=== PATIENT | female | born 1985 | race Caucasian/White ===

== ENCOUNTER 2017-04-21 07:28 | Inpatient (IN) | payer OTHER ==
[~2017-04-21] VITALS: Ht 167.6 cm; Wt 83.9 kg
[~2017-04-21 07:28] MED LIST: PREN1TAB47 PO; WEL100 PO
[2017-04-21] MEDS ORDERED: fentaNYL-PF 50 mCg/mL 2 mL Inj IVPUSH PRN (08:15)
[2017-04-21] MEDS ORDERED: Carboprost 250 mCg/mL Inj IM PRN ×2 (08:15→18:30)
[2017-04-21] MEDS ORDERED: Hemorrhage Kit, Post Partum XX ONE ×2 (08:15→18:30)
[2017-04-21] MEDS ORDERED: Methylergonovine 0.2 mg/mL Inj IM PRN ×2 (08:15→18:30)
[2017-04-21] MEDS ORDERED: Oxytocin 10 Unit/mL Inj IM PRN ×2 (08:15→18:30)
[2017-04-21] MEDS ORDERED: Oxytocin 30 Units/500 mL LR 30 UNITS in IV Premix 1 EACH IV PRN (08:15)
[2017-04-21] MEDS ORDERED: Sodium Chloride LOK Flush 10 mL Syringe IVFLUSH PRN (08:15)
[2017-04-21 08:42] LABS: Mean Corpuscular Hemoglobin 31.3 pg (27.0-35.0); Mean Corpuscular Volume 89.8 fL (81-100)
[2017-04-21] MEDS: Lactated Ringer's 1,000 ML IV PRN ×2 (08:48→11:03)
[2017-04-21] MEDS ORDERED: Lactated Ringer's 500 ML IV ONE (11:02)
[2017-04-21] MEDS ORDERED: EPHEDrine Sulfate 50 mg/mL Inj IVPUSH PRN (11:05)
[2017-04-21] MEDS ORDERED: fentaNYL 2 mCg/mL-Bupiv 0.125% 100 ML EPIDURAL SCH (11:05)
[2017-04-21] MEDS ORDERED: Atropine 1 mg/10 mL (Code) Syringe IVPUSH PRN (11:05)
[2017-04-21] MEDS ORDERED: Ondansetron 2 mg/mL 2 mL Inj IVPUSH PRN (11:05)
--- NOTE | 2017-04-21 14:37 | PCM.HPANE ---
Patient Data Date of Service: Apr 21, 2017 Surgeon Admitting Provider:Akshat Ledesma MD Attending Provider:Akshat Ledesma MD Primary Care Physician:Akshat Ledesma MD Other Provider: Reason for Visit Early Labor Check Ht/WT & BMI Body Mass Index Allergies Coded Allergies: No Known Allergies (Unverified Allergy, 11/03/12) Past Anesthesia History Anesthesia History: Denies:: Abnormal Airway Diabetes History Hx Diabetes?: No MRSA MRSA: No Medications Hypertension Medication: No Home Meds Incl Beta Otto: No Reported Medications Bupropion-Expunged Drug, Do Not Renew! 100 Mg Tablet1 Tab PO BID #60 TAB TAKE WITH FOOD 11/02/12 Vit/Fe Fumarate/Fa-Expunged Drug, Do (-Expunged Drug, Do Not Renew!)1 Tab Tablet1 Tab PO DAILY #1 11/02/12 History History of ENT Problems?: No HEENT History: Denies:: Abnormal Airway Denture Type: None Teeth Condition: Within Normal Limits Hx of Heart Problems?: No Cardiovascular History: Denies:: Abdominal Aortic Aneurism Hx of Respiratory Problem?: No Respiratory History: Denies:: Asthma Hx Neurologic Problems?: Yes Neurological History: Positive for:: Peripheral Neuropathy Other History/Comments numbness to right later leg. No weakness. Radiculopathy to b/l legs. Overall back pain. Hx of GI Problems?: Yes Gastrointestinal History: Positive for:: Gastroesphageal Reflux Hx of Problems?: No HX of Peritoneal Dialysis: No Female Hx: Positive for:: Currently Hx Musculoskeletal Problems?: Yes Musculoskeletal History: Positive for:: Back Injury Degenerative Joint Fibromyalgia Hx of Psycho/Social Problems?: No Hx Surgeries?: No Hx Any Other Health Problems?: No Hx Diabetes: No Hx Alcohol Use: YesHx Substance Use: No Stop/Bang Treated for Sleep Apnea?: No Do You Have a CPAP Machine?: No ANDRÉS Risk Assessment: Low Risk, <3 Yes Risk Assessment Category Category 1A: Patient has history of documented sleep apnea, and HAS NOT received any narcotic, sedative or anesthesia administration during this stay. Category 1B: Patient has history of documented sleep apnea, and HAS received any narcotic , sedative or anesthesia administration during this stay Category 2: Patient has SUSPECTED Obstructive Sleep Apnea, and HAS received any narcotic , sedative or anesthesia administration during this stay. Category 3: Patient has SUSPECTED Obstructive Sleep Apnea and HAS NOT received narcotic, sedative or anesthesia administration during this stay. Category 4: Outpatient in Procedural Areas with known sleep apnea or who screen positive for High Risk via the STOP/BANG questionnaire. Exam Exam General Appearance: Alert, Oriented X3 HEENT/AIRWAY: MP 1 Lungs: Clear to Auscultation Heart: Exam Unremarkable Meds/Labs/Diagnostics Labs Test 04/21/17 08:15 White Blood Count 17.4th/mm3 (3.8-10.1) Red Blood Count 4.41mil/mm3 (3.90-5.20) Hemoglobin 13.8g/dL (12.0-15.6) Hematocrit 39.6% (35.0-46.0) Mean Corpuscular Volume 89.8fL (81-100) Mean Corpuscular Hemoglobin 31.3pg (27.0-35.0) Mean Corpuscular Hemoglobin Concent 34.8% (32.0-37.0) Red Cell Distribution Width 13.4% (12.3-15.4) Platelet Count 171bil/L (150-400) Plan Impression Patient chart reviewed, patient interviewed and anesthestic plan with risks, benefits, and alternatives discussed, and informed consent obtained. NPO per Anesth. Guidelines: Yes ASA Physical Status: ASA2 Mod Systemic Disease Anesthetic Plan: Regional Block Bene/Risks/Altern/Consents: Yes HP Complete Prior to Induction: Yes Other Beyond normal consent, spent extra time discussing her back pain, risk of nerve damage with placement. Option to obtain imiging prior to epidural to better understand nature of back pain. She understands and wishes to proceed. Marky Ovalle MD Apr 21, 2017 14:37
[2017-04-21] MEDS: Lactated Ringer's 1,000 ML IV SCH ×2 (16:24→19:02)
[2017-04-21] MEDS ORDERED: Sodium Chloride LOK Flush 10 mL Syringe IVFLUSH SCH (16:30)
--- NOTE | 2017-04-21 17:26 | PCM.PNOBIP ---
Subjective Date of Service Apr 21, 2017 Delivery plan: Spontaneous Vaginal Delivery Visit History In to check on patient progress. Subjective Currently without complaints. Pain Management: Epidural, Good Pain Control Labs Laboratory Tests 04/21/17 08:15: White Blood Count 17.4, Red Blood Count 4.41, Hemoglobin 13.8, Hematocrit 39.6, Mean Corpuscular Volume 89.8, Mean Corpuscular Hemoglobin 31.3, Mean Corpuscular Hemoglobin Concent 34.8, Red Cell Distribution Width 13.4, Platelet Count 171 Exam Vital Signs Vital Signs Contraction frequency in minutes: MVUs: Vital Signs: VS reviewed, stable Heart Tracings Heart Tones Baseline 145 bpm Heart Rate Variability: Moderate Heart Rate Accelleration: Present Heart Rate Deceleration: Absent Tocometry/IUPC Contraction frequency in minutes: 2-3 Sterile Vaginal Exam Cervical Dilation: 7 cms Cervical Effacement: 90 % Station: -2 Exam General: Alert, Oriented X3, Cooperative, No Acute Distress OB Intrapartum Assessment/Plan Assessment Active phase labor, progressing Problems: (1) with 39 completed weeks gestation Status: Acute ICD Code: Z3A.39 Intrapartum plan: Start pitocin (-- started; currently at 4 mU/min), AROM ( forebag ruptured at time of exam) Pain Evaluation: Adequate Pain Control Akshat Ledesma MD Apr 21, 2017 17:26
[2017-04-21] MEDS ORDERED: HYDROcodone-APAP 5-325 mg Tablet PO PRN (18:30)
[2017-04-21] MEDS ORDERED: LANOlin HPA 7 Gm Ointment TOPICAL PRN (18:30)
[2017-04-21] MEDS ORDERED: Witch Hazel-Glycerin Pads TOPICAL PRN (18:30)
[2017-04-21] MEDS ORDERED: Benzocaine (Dermoplast) 20% 60 Gm Spray TOPICAL PRN (18:30)
[2017-04-21] MEDS ORDERED: Lactated Ringer's 1,000 ML IV SCH (18:30)
--- NOTE | 2017-04-21 18:35 | PCM.OBVAG ---
Vaginal Delivery Date of Service Apr 21, 2017 Pre Operative Diagnosis Pre Operative Diagnosis Term gestation, labor Post Operative Diagnosis Post Operative Diagnosis Term gestation, delivered Procedure Obstetical Procedure: Normal Spontaneous Vaginal Delivery Elevator Mechanic/Bank Courier Provider and Bank Courier: Akshat Ledesma MD Indication for Procedure Induction: Active labor, Pitocin augmentation, SROM, Progressed normally through labor Findings Obstetrical Findings: [place] (Male), Presentation (Vertex), Placenta (Intact/ Normal), Perineal Laceration (intact) Analgesia/Medications Obstetrical Anesthesia: Epidural Procedure Details Procedure Details 32yo presenting at 39 2/7 weeks EGA in active labor. Uncomplicated labor and delivery. Blood Loss & Administration Estimated Blood Loss: 300 Post Procedure Plan Post delivery Condition: Mom stable, Baby stable to nursery Akshat Ledesma MD Apr 21, 2017 18:35
[2017-04-22 06:56] LABS: Mean Corpuscular Hemoglobin 30.9 pg (27.0-35.0); Mean Corpuscular Volume 91.9 fL (81-100)
--- NOTE | 2017-04-22 07:55 | PCM.PNOBPP ---
Subjective Date of Service Apr 22, 2017 Post : Spontaneous Vaginal Delivery Visit History day #1 Subjective Patient feeling well. Lochia: Normal Pain Management: PO pain meds, Good Pain Control Gastrointestinal: Good Appetite, No N/V Postop Activity: Ambulating Independently Labs Laboratory Tests 04/22/17 06:45: White Blood Count 16.7, Red Blood Count 4.08, Hemoglobin 12.6, Hematocrit 37.5, Mean Corpuscular Volume 91.9, Mean Corpuscular Hemoglobin 30.9, Mean Corpuscular Hemoglobin Concent 33.6, Red Cell Distribution Width 13.4, Platelet Count 182 Exam Vital Signs Vital Signs: VS reviewed, stable Exam Abdomen: Uterus is (at the umbilicus), Fundus firm, Abdomen soft, Abdomen non- tender Perineum: Intact : Voiding without difficulty Extremities: No cords Lungs: Clear to Auscultation, Normal Air Movement Heart: Normal S1, Normal S2, No Murmurs/Rubs/Gallops General: Alert, Oriented X3, Cooperative, No Acute Distress OB Post Assessment/Plan Assessment PPD#1 -- doing well Problems: (1) with 39 completed weeks gestation Status: Acute ICD Code: Z3A.39 Pain Evaluation: Adequate Pain Control Post plan: Anticipate discharge home today Akshat Ledesma MD Apr 22, 2017 07:55
--- NOTE | 2017-04-22 07:58 | PCM.DC.OB ---
Obstetrical Discharge Summary Date of Service Apr 22, 2017 Date of hospital admission Apr 21, 2017 at 07:50 Date of Discharge: Apr 22, 2017 Providers Admitting Physician: Akshat Ledesma MD Primary Care Physician: Akshat Ledesma MD Attending Physician: Akshat Ledesma MD Problems: (1) with 39 completed weeks gestation Status: Acute ICD Code: Z3A.39 Brief History and Physical: 32yo presenting at 39 2/7 weeks EGA in active phase labor. Hospital Course: Labor progressed without incident. Patient received an epidural, with good analgesic effect. She delivered a vigorous infant male via uncomplicated . Uneventful course. Discharged home on day #1. Bupropion-Expunged Drug, Do Not Renew! (Bupropion-Expunged Drug, Do Not Renew!) 100 Mg Tablet 1 TAB PO BID (Reported) TAKE WITH FOOD Vit/Fe Fumarate/Fa-Expunged Drug, Do (-Expunged Drug, Do Not Renew!) 1 Tab Tablet 1 TAB PO DAILY (Reported) Disposition Home Follow-up plan 6 weeks Discharge Diet: No restrictions Discharge Activity-General: Pelvic Rest for 6 weeks Akshat Ledesma MD Apr 22, 2017 07:58
--- NOTE | 2017-04-22 07:59 | PCM.DIOB ---
Obstetrical Disch Instruction Date of Service: Apr 22, 2017 Dates of Hospitalization Date of Hospital Admission Apr 21, 2017 at 07:50 Providers Admitting Physician: Akshat Ledesma MD Primary Care Physician: Akshat Ledesma MD Attending Physician: Akshat Ledesma MD Discharge Diagnosis Problems: (1) with 39 completed weeks gestation Status: Resolved ICD Code: Z3A.39 Diet Discharge Diet: No restrictions Activity Discharge Activity-General: Pelvic Rest for 6 weeks Dressing and Incisional Care Hygiene: May shower Follow Up Plan Follow-up Provider (F9): Akshat Ledesma MD Follow-up appointment: Weeks (6) Call your provider for: Fever or Chills, Shortness of breath, Heavy vaginal bleeding, Epigastric pain, Excessive constipation, Vaginal discomfort, Red painful breasts Akshat Ledesma MD Apr 22, 2017 07:59
[2017-04-22] MEDS ORDERED: HYDR-4003 PO (08:02)
[2017-04-22 10:19] VITALS: BP 110/74; PULSE 71; RESP 20
== END 2017-04-22 14:39 | disposition home or self-care (01) | DRG 775 ==
LOC: FBCO 07:28 → FBC 07:50
PROVIDERS: ADMIT Family Medicine; ATTEND Family Medicine
PROC: 10E0XZZ Delivery of Products of Conception, External Approach (ICD-10-PCS; principal; 2017-04-21)
DX: O80 Encounter for full-term uncomplicated delivery (principal); Z37.0 Single live birth; Z3A.39 39 weeks gestation of pregnancy